=== PATIENT | male | born 1990 | race Caucasian/White ===

== ENCOUNTER 2017-08-18 13:26 | Emergency (ER) | payer MEDICAID ==
[~2017-08-18] VITALS: Ht 180.3 cm; Wt 66.7 kg
[2017-08-18 13:33] VITALS: BP 129/93
[2017-08-18] MEDS ORDERED: CLIN-80 PO (15:14)
== END 2017-08-18 15:24 | disposition home or self-care (01) ==
LOC: ER 13:27
DX: M79.641 Pain in right hand (principal); F12.10 Cannabis abuse, uncomplicated; Z98.890 Other specified postprocedural states; X58.XXXA Exposure to other specified factors, initial encounter; Y93.89 Activity, other specified; Y92.89 Other specified places as the place of occurrence of the external cause; Y99.9 Unspecified external cause status
CPT/HCPCS: 73130; 99284

== ENCOUNTER 2017-09-18 11:20 | Emergency (ER) | payer MEDICAID ==
[~2017-09-18] VITALS: Ht 180.3 cm; Wt 66.0 kg
[~2017-09-18 11:20] MED LIST: CLIN-80 PO
[2017-09-18] MEDS ORDERED: PERM60CR19 TP (11:50)
[2017-09-18 11:57] VITALS: BP 125/80
== END 2017-09-18 11:59 | disposition home or self-care (01) ==
LOC: ER 11:20
DX: B86 Scabies (principal); F15.10 Other stimulant abuse, uncomplicated; F12.10 Cannabis abuse, uncomplicated
CPT/HCPCS: 99283

== ENCOUNTER 2017-09-22 15:11 | Emergency (ER) | payer MEDICAID ==
[~2017-09-22] VITALS: Ht 180.3 cm; Wt 64.8 kg
[~2017-09-22 15:11] MED LIST changes: +PERM60CR19 TP
[2017-09-22 15:21] VITALS: BP 108/75
[2017-09-22] MEDS ORDERED: DOXY100C43 PO (16:26)
[2017-09-22] MEDS ORDERED: PERM60CR19 TP (16:52)
== END 2017-09-22 17:04 | disposition home or self-care (01) ==
LOC: ER 15:12
DX: B86 Scabies (principal); F12.10 Cannabis abuse, uncomplicated; Z98.890 Other specified postprocedural states
CPT/HCPCS: 99283

== ENCOUNTER 2017-10-02 15:13 | Emergency (ER) | payer MEDICAID ==
[~2017-10-02] VITALS: Ht 180.3 cm; Wt 67.3 kg
[2017-10-02] MEDS ORDERED: NICO-687 TD (15:29)
[2017-10-02] MEDS ORDERED: nicotine 21mg patch - 24 hr TD ONE (15:30)
[2017-10-02 16:08] VITALS: BP 105/57
== END 2017-10-02 16:05 | disposition home or self-care (01) ==
LOC: ER 15:13
DX: Z02.89 Encounter for other administrative examinations (principal); F12.10 Cannabis abuse, uncomplicated; F15.10 Other stimulant abuse, uncomplicated; F17.200 Nicotine dependence, unspecified, uncomplicated; Z56.0 Unemployment, unspecified; Z98.890 Other specified postprocedural states; Z79.899 Other long term (current) drug therapy
CPT/HCPCS: 99282

== ENCOUNTER 2019-04-08 09:54 | Emergency (ER) | payer MEDICAID ==
[~2019-04-08] VITALS: Ht 180.3 cm; Wt 70.0 kg
[~2019-04-08 09:54] MED LIST changes: -CLIN-80 PO; +CLIN-96 PO; -PERM60CR19 TP
--- NOTE | 2019-04-08 10:19 | NUR ---
PT LWOBS WITH SECURITY EXCORTING HIM OUT THROUGH THE AMBULANCE BAY. PER SECURITY THE PT CHANGED HIS MIND AND DID NOT WANT TO BE HERE. PT HAD NOT BEEN SEEN BY THE PROVIDER, FRANCOIS WAS CALLED AND NOTIFIED OF PT BE SI AND LWOBS
== END 2019-04-08 10:21 | disposition left against medical advice (07) ==
LOC: ER 09:55
DX: Z00.8 Encounter for other general examination (principal); Z53.21 Procedure and treatment not carried out due to patient leaving prior to being seen by health care provider

== ENCOUNTER 2019-04-09 14:41 | Emergency (ER) | payer MEDICAID ==
[~2019-04-09] VITALS: Ht 180.3 cm; Wt 63.8 kg
[2019-04-09 14:47] VITALS: BP 100/74
== END 2019-04-09 16:46 | disposition home or self-care (01) ==
LOC: ER 14:42
DX: F20.9 Schizophrenia, unspecified (principal); F31.9 Bipolar disorder, unspecified; F12.90 Cannabis use, unspecified, uncomplicated; F15.90 Other stimulant use, unspecified, uncomplicated; Z59.0 Homelessness; Z79.2 Long term (current) use of antibiotics; Z56.0 Unemployment, unspecified; Z87.19 Personal history of other diseases of the digestive system; Z98.890 Other specified postprocedural states
CPT/HCPCS: 99284

== ENCOUNTER 2019-04-29 12:05 | Emergency (ER) | payer MEDICAID ==
[~2019-04-29] VITALS: Ht 154.9 cm; Wt 61.3 kg
--- NOTE | 2019-04-29 12:21 | NUR ---
PT LEFT THE ER AFTER TRIAGE WAS COMPLETED. PT WAS EXTREEMLY WIRED UP, HAD SECURITY STANDING BY FOR RN SAFETY. PT FELT PEOPLE WERE TALKING ABOUT HIM AND MAKING BETS. ATTEMPTED TO CALM PT AND GET HIM TO STAY AND BE EVALUATED, PT JUST JUMPED UP OFF THE WEIGHT CHAIR AND LEFT THROUGH THE TRIAGE/LOBBY DOOR AND OBSERVED LEAVING OUT OF THE ER LOBBY TO THE PARKING LOT
== END 2019-04-29 12:29 | disposition left against medical advice (07) ==
LOC: ER 12:07
DX: R44.3 Hallucinations, unspecified (principal); Z53.21 Procedure and treatment not carried out due to patient leaving prior to being seen by health care provider